=== PATIENT | male | born 1980 | race Caucasian/White ===

== ENCOUNTER 2016-05-27 20:12 | Emergency (ER) | payer BC ==
[2016-05-27 20:24] VITALS: BP 134/86; BMI 29.8
--- NOTE | 2016-05-27 20:26 | DR.PSYCH ---
HPI - Time Seen Time seen: 20:26 - PCP Primary Care Physician: nfd - Complaint Chief Complaint Doctors Comments: Patient states that he is non suicidal or homocidal. He has pain in back from herniated discs. He admits to taking nerves medication but does not know the name. He denies he intientionally tried to harm himself with scratches on left arm. Chief Complaint:: pt states" i'm just tired of everything I tired too choke myself to with a shirt. I just can't take it anymore I have so much pain in my back and neck I just can't and don't want too deal with anymore. I'd rather be " - Source History Provided: Patient - Mode of Arrival Mode of Arrival: EMS - Timing Onset of Chief Complaint: 05/27/16 PMH - PMH Past Medical History: Yes Past Medical History: Hypertension Past Surgical History: Yes Surgical History: Ortho Surgery Past Surgical History Comment: c-5 to c-7 fusion - Family History History of Family Medical Conditions: Yes Family Medical History: Diabetes Mellitus, [place], Hypertension - Social History Does patient currently use any type of tobacco product: Yes Have you used tobacco products in the last 12 months: Yes Does any household member use tobacco: No Alcohol Use: None Do you use any recreational Drugs:: No Lives With: Family Lives Where: Home - infectious screening In the last 2 months have you had wt loss of >10#?: NO Have you had fever, night sweats or hemotysis?: No Have you traveled outside the country in the last 6 months?: No Isolation: Standard ROS - Review of Systems Constitutional: No Symptoms Reported Eyes: No Symptoms Reported ENTM: No Symptoms Reported Respiratoy: No Symptoms Reported Cardiovascular: No Symptoms Reported Gastrointestinal/Abdominal: No Symptoms Reported Genitourinary: No Symptoms Reported Neurological: Emotional Problems Musculoskeletal: 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) Integumentary: No Symptoms Reported Hematologic/Lymphatic: No Symptoms Reported Endocrine: No Symptoms Reported Psychiatric: No Symptoms Reported All Other Systems: Reviewed and Negative PE - Vitals Vitals: Temperature 99.1 F Pulse Rate 135 Respiratory Rate 18 Blood Pressure [Right Arm] 143/81 Blood Pressure 134/86 O2 Sat by Pulse Oximetry 98 - General Limitations: No Limitations General Appearance: Alert, In No Apparent Distress - Head Head Exam: Normal Inspection, Atraumatic Head Exam Physical: Laceration - Eyes Eye exam: Normal Appearance Pupils: Regular, Round: Bilateral Sclera/Conjunctival: Normal Inspection: Bilateral - ENT ENT Exam: Normal Exam - Neck Neck Exam: Normal Inspection - Chest Chest Inspection: Normal Inspection - Respiratory Respiratory Exam: Normal Lung Sounds Bilat Respiratory Exam: Bilateral Clear to Auscultation - Cardiovascular Cardiovascular Exam: Regular Rate - Abdominal Exam Abdominal Exam: Normal Inspection Abdominal Tenderness: negative: RUQ, RLQ, LUQ, LLQ, Epigastrium, Suprapubic, Diffuse, Mild, Moderate, Severe, Other - Extremities Extremities Exam: Other (scratches left arm) - Back Back Exam: Normal Inspection - Neurologic Neurological Exam: Alert, Oriented X3, CN II-XII Intact Speech: Fluid Speech Cranial Nerve Exam: EOM Function (II, III, IV, ): Right Abnormal - Psychiatric Psychiatric Exam: Depressed, Flat Affect Expanded Psychiatric Exam: Poor Eye Contact - Skin Skin Exam: Warm, Dry, Other (scratches left arm) ROR - Labs Reviewed Result Diagrams: 05/27/16 20:25 05/27/16 20:25 Laboratory: WBC 10.1 X10^3/uL (3.6-10.0) H 05/27/16 20:25 RBC 5.40 X10^6/uL (4.7-6.0) 05/27/16 20:25 Hgb 16.4 g/dL (13.5-18.0) 05/27/16 20:25 Hct 47.5 % (42.0-54.0) 05/27/16 20:25 MCV 88.0 fL (80.0-100.0) 05/27/16 20:25 MCH 30.4 pg (27.0-34.0) 05/27/16 20:25 MCHC 34.5 g/dL (33.0-35.0) 05/27/16 20:25 RDW 14.2 % (11.6-16.5) 05/27/16 20:25 Plt Count 463 X10^3/uL (150.0-450.0) H 05/27/16 20:25 MPV 8.6 fL (7.4-11.0) 05/27/16 20:25 Neut % 67.5 % (42.0-75.0) 05/27/16 20:25 Lymph % 24.5 % (21.0-51.0) 05/27/16 20:25 [place] % 3.7 % (0.0-13.0) 05/27/16 20:25 Eos % 2.7 % (0.9-2.9) 05/27/16 20:25 Baso % 1.6 % (0.2-1.0) H 05/27/16 20:25 Neut # 6.8 x10^3/uL (2.2-4.8) H 05/27/16 20:25 Lymph # 2.5 X10^3/uL (1.3-2.9) 05/27/16 20:25 [place] # 0.4 x10^3/uL (0.3-0.8) 05/27/16 20:25 Eos # 0.3 x10^3/uL (0.0-0.2) H 05/27/16 20:25 Baso # 0.2 X10^3/uL (0.0-0.1) H 05/27/16 20:25 Absolute Nucleated RBC 0.1 /100WBC 05/27/16 20:25 - Discharge Plan Condition: Stable - Follow ups/Referrals Follow ups/Referrals: NFD,None [Primary Care Provider] - 3 days - Instructions
[2016-05-27 20:40] LABS: BASOPHILS # (AUTO) 0.2 X10^3/uL (0.0-0.1); BASOPHILS % (AUTO) 1.6 % (0.2-1.0); EOSINOPHILS # (AUTO) 0.3 x10^3/uL (0.0-0.2); EOSINOPHILS % (AUTO) 2.7 % (0.9-2.9); HEMATOCRIT 47.5 % (42.0-54.0); HEMOGLOBIN 16.4 g/dL (13.5-18.0); LYMPHOCYTES # (AUTO) 2.5 X10^3/uL (1.3-2.9); LYMPHOCYTES % (AUTO) 24.5 % (21.0-51.0); MEAN CORPUSCULAR HEMOGLOBIN 30.4 pg (27.0-34.0); MEAN CORPUSCULAR HGB CONC 34.5 g/dL (33.0-35.0); MEAN PLATELET VOLUME 8.6 fL (7.4-11.0); MONOCYTES # (AUTO) 0.4 x10^3/uL (0.3-0.8); MONOCYTES % (AUTO) 3.7 % (0.0-13.0); NEUTROPHILS # (AUTO) 6.8 x10^3/uL (2.2-4.8); NEUTROPHILS % (AUTO) 67.5 % (42.0-75.0); PLATELET COUNT 463 X10^3/uL (150.0-450.0); RED CELL DISTRIBUTION WIDTH 14.2 % (11.6-16.5); WHITE BLOOD COUNT 10.1 X10^3/uL (3.6-10.0)
[2016-05-27 20:54] LABS: SALICYLATE < 2.8 mg/dL (2.8-20)
[2016-05-27 20:55] LABS: ALANINE AMINOTRANSFERASE 42 Units/L (12-78); ALBUMIN 4.1 g/dL (3.4-5.0); ALKALINE PHOSPHATASE 91 Units/L (46-116); ASPARTATE AMINO TRANSFERASE 17 Units/L (15-37); BLOOD ALCOHOL < 3 mg/dL (0-19.9); BLOOD UREA NITROGEN 9 mg/dL (7-18); CALCIUM 8.6 mg/dL (8.5-10.1); CARBON DIOXIDE 22.8 mmol/L (21-32); CHLORIDE 105 mmol/L (98-107); COR NA(FOR HYPERGLY) 142 mmol/L (136-145); CREATININE 1.04 mg/dL (0.70-1.30); GLUCOSE 203 mg/dL (65-99); SODIUM 140 mmol/L (136-145); TOTAL PROTEIN 7.6 g/dL (6.4-8.2); eGFR BLACK RACES > 60 (>60); eGFR NON BLACK RACES > 60 (>60)
== END 2016-05-27 21:27 | disposition left against medical advice (07) ==
LOC: ER 20:12
DX: R45.851 Suicidal ideations (principal); M54.89 Other dorsalgia; M54.2 Cervicalgia; F43.8 Other reactions to severe stress
CPT/HCPCS: 36415; 80053; 80307; 80320; 85025; 99282; 99283; G6038; G6039; G6040

== ENCOUNTER → 2016-06-10 | Outpatient (CLI) | payer BC ==
[2016-05-27 20:24] VITALS: BP 134/86
--- NOTE | 2016-06-10 11:07 | MRI ---
HISTORY: Chronic low back pain, radiculopathy Study: MRI lumbar spine without contrast Comparison: January 07, 2016 Technique: Multiplanar multi-sequence MRI of the lumbar spine was obtained. Sagittal T1, sagittal T 2, and stir weighted images, axial T1, and axial T2 images were obtained. Findings: The lumbar spine demonstrates normal alignment with the expected signal characteristics of the bone marrow. The conus of the cord terminates normally. T12 -- L1: No evidence for compressive disc disease. The neural foramina are patent. The joints are normal. L1 -- L2: No evidence for compressive disc disease. The neural foramina are patent. The joints are n ormal. L2 -- L3: There is minimal disc bulging which causes mild thecal sac effacement . It contributes to mild lateral recess narrowing on the right. The left neural foramen is patent. The joints are normal . L3 -- L4: Broad-based disk bulging effaces the thecal sac and contributes along with mild facet arth ropathy to lateral recess and foraminal narrowing bilaterally. L4 -- L5: Mild broad-based disk bulging effaces the thecal sac and contributes along with pedicular shortening and facet arthropathy to lateral recess and foraminal narrowing bilaterally. L5 -- S1: There is a focal leftward disc protrusion which contributes to lateral recess and foramina l narrowing on the left. The right neural foramen is patent. The joints are normal. IMPRESSION: As above Reported By:
--- NOTE | 2016-06-10 11:10 | MRI ---
HISTORY: Chronic pain syndrome, neuritis, radiculitis Study: MRI thoracic spine without contrast Comparison: None Technique: Multiplanar multi-sequence MRI of the thoracic spine was obtained with standard [facility] protocol. Findings: The thoracic spine demonstrates normal alignment. No abnormal cord or marrow signal identified. The surrounding soft tissues are within normal limits. Vertebral body heights are preserved. The disc s paces are normal. There are partially visualized postsurgical changes in the lower cervical spine. IMPRESSION: 1. Normal MRI of the thoracic spine. Reported By:
--- NOTE | 2016-06-10 11:15 | MRI ---
Examination: MRI of the cervical spine Clinical History: Chronic pain syndrome, chronic cervical pain, neuritis or radiculitis. Technique: Multiple sequences were obtained in the sagittal and axial planes. Comparison: 01/07/2016. Findings: The cervical spine was imaged from the skull base to the level of T3. The visualized portion of the skull base is unremarkable. 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 Other etiologies cannot de finitely be excluded. The vertebral body alignment is within normal limits. There are stable postsurgical changes from a ventral fusion and decompressive laminectomies at the C 5-C7 levels, with ferromagnetic artifact from the metallic hardware making evaluation at these level s technically difficult. Signal changes are noted within the intervertebral disks at all levels in the cervical spine, consis tent with disk desiccation. No vertebral body signal abnormality is noted. No paraspinal abnormality is noted. C2-C3: Broad-based disc osteophytic complex formation is noted, mildly encroaching on the ventral as pect of the thecal sac and causing mild right-sided neural foraminal narrowing. No central canal gamal nosis is noted. Findings are not significantly changed when compared with the prior examination. C3-C4: Broad-based disc osteophytic complex formation is noted, encroaching on the ventral aspect of the thecal sac and causing mild bilateral neural foraminal narrowing, as well as mild central canal stenosis. Findings are not significantly changed when compared with the prior examination. C4-C5: Broad-based disc osteophytic complex formation is noted, encroaching on the ventral aspect of the thecal sac and causing mild left-sided neural foraminal narrowing, minor right-sided neural for aminal narrowing and mild central canal stenosis. Findings are not significantly changed when compar ed with the prior examination. C5-C6: Broad-based disc osteophytic complex formation is noted, encroaching on the ventral aspect of the thecal sac and causing mild bilateral neural foraminal narrowing. No central canal stenosis is noted. Findings are not significantly changed when compared with the prior examination. C6-C7: Broad-based disc osteophytic complex formation is noted, somewhat eccentric to the right, enc roaching on the ventral aspect of the thecal sac and causing mild to moderate right-sided neural for aminal narrowing and mild left-sided neural foraminal narrowing. No central canal stenosis is noted. Findings are not significantly changed when compared with the prior examination. C7-T1: Broad-based disc osteophytic complex formation is noted, mildly encroaching on the ventral as pect of the thecal sac and causing mild bilateral neural foraminal narrowing. No central canal steno sis is noted. Findings are not significantly changed compared with the prior examination. Impression: 1. There are stable postsurgical changes from a ventral fusion with decompressive laminectomies seen at the C5-C7 levels. 2. Multilevel disk degenerative changes resulting in neural foraminal narrowing and central canal st enosis, as described above. Findings are not significantly changed when compared with the prior exam ination. 3. 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 Other etiologies cannot definitely be excluded. Reported By:
== END ==
LOC: RAD 08:29
PROVIDERS: ATTEND Neurological Surgery
DX: M54.16 Radiculopathy, lumbar region (principal); G89.4 Chronic pain syndrome
CPT/HCPCS: 72141; 72146; 72148

== ENCOUNTER 2016-06-27 15:12 | Emergency (ER) | payer BC ==
[2016-06-27 15:25] VITALS: BMI 29.0
[2016-06-27 15:50] LABS: BASOPHILS # (AUTO) 0.1 X10^3/uL (0.0-0.1); BASOPHILS % (AUTO) 0.9 % (0.2-1.0); EOSINOPHILS # (AUTO) 0.2 x10^3/uL (0.0-0.2); EOSINOPHILS % (AUTO) 1.8 % (0.9-2.9); HEMATOCRIT 44.1 % (42.0-54.0); MEAN CORPUSCULAR HEMOGLOBIN 29.2 pg (27.0-34.0); MEAN CORPUSCULAR VOLUME 85.9 fL (80.0-100.0); MONOCYTES # (AUTO) 0.5 x10^3/uL (0.3-0.8); MONOCYTES % (AUTO) 5.3 % (0.0-13.0); NEUTROPHILS # (AUTO) 7.1 x10^3/uL (2.2-4.8); PLATELET COUNT 377 X10^3/uL (150.0-450.0); RED BLOOD COUNT 5.13 X10^6/uL (4.7-6.0); RED CELL DISTRIBUTION WIDTH 13.7 % (11.6-16.5); WHITE BLOOD COUNT 9.9 X10^3/uL (3.6-10.0)
[2016-06-27] MEDS ORDERED: ACTIDOSE WITH SORBITOL PO ONE (15:52)
[2016-06-27] MEDS ORDERED: ACTIDOSE WITH SORBITOL ONE (15:53)
[2016-06-27] MEDS ORDERED: NS 1000 ML 1,000 ML ONE (15:53)
[2016-06-27] MEDS ORDERED: NS 1000 ML 1,000 ML IV SCH (16:00)
[2016-06-27 16:03] LABS: ACETAMINOPHEN 9.7 ug/mL (10-30)
[2016-06-27 16:04] LABS: BLOOD UREA NITROGEN 10 mg/dL (7-18); CALCIUM 8.7 mg/dL (8.5-10.1); CARBON DIOXIDE 29.5 mmol/L (21-32); CHLORIDE 108 mmol/L (98-107); CREATININE 0.99 mg/dL (0.70-1.30); GLUCOSE 88 mg/dL (65-99); SODIUM 146 mmol/L (136-145); eGFR BLACK RACES > 60 (>60); eGFR NON BLACK RACES > 60 (>60)
[2016-06-27 16:08] LABS: ALANINE AMINOTRANSFERASE 41 Units/L (12-78); ALBUMIN 3.7 g/dL (3.4-5.0); ALKALINE PHOSPHATASE 97 Units/L (46-116); ASPARTATE AMINO TRANSFERASE 25 Units/L (15-37); CKMB % 1.1 % (<4); CREATINE KINASE 230 Units/L (39-308); CREATINE KINASE MB 2.6 ng/mL (0-4.0); TOTAL PROTEIN 7.1 g/dL (6.4-8.2)
[2016-06-27] MEDS ORDERED: ZOFRAN INJ 4 MG VIAL ONE (16:09)
[2016-06-27 16:10] LABS: SALICYLATE < 2.8 mg/dL (2.8-20)
[2016-06-27] MEDS ORDERED: ZOFRAN INJ 4 MG VIAL IVP ONE (16:12)
[2016-06-27 16:24] LABS: BLOOD ALCOHOL < 3.0 mg/dL (0-19.9)
[2016-06-27 16:28] LABS: TROPONIN I < 0.02 ng/mL (0-1.5)
[2016-06-27 16:35] LABS: BILIRUBIN,URINE NEGATIVE (NEGATIVE); BLOOD/HEMOGLOBIN,URINE NEGATIVE (NEGATIVE); GLUCOSE, URINE NEGATIVE (NEGATIVE); KETONES,URINE NEGATIVE (NEGATIVE); LEUKOCYTE ESTERASE ,URINE NEGATIVE (NEGATIVE); NITRITES,URINE NEGATIVE (NEGATIVE); PROTEIN,URINE NEGATIVE (NEGATIVE); UROBILINOGEN,URINE NORMAL (NORMAL)
[2016-06-27 16:58] LABS: APPEARANCE,URINE CLEAR (CLEAR); COLOR,URINE YELLOW (YELLOW)
[2016-06-27 17:05] LABS: RBC,URINE NONE SEEN /HPF (NEGATIVE); SQUAMOUS EPITHELIAL CELL,UR RARE /HPF (NEGATIVE)
[2016-06-27 17:06] LABS: AMORPHOUS SEDIMENT,UR TRACE /HPF (NEGATIVE); BACTERIA,URINE NEGATIVE /HPF (NEGATIVE)
[2016-06-27] MEDS ORDERED: TYLENOL 325 MG TAB PO ONE ×2 (20:26→20:27)
[2016-06-27] MEDS ORDERED: TORADOL 30 MG VIAL IVP ONE (23:53)
[2016-06-27] MEDS ORDERED: TORADOL 30 MG VIAL ONE (23:58)
--- NOTE | 2016-06-28 01:56 | DR.GENAD ---
HPI - PCP Primary Care Physician: LORENA - Complaint/Symptoms Chief Complaint Doctors Comments: History as stated that patient attempted suicide by taking xanax tablets several pills. He presented to the ED s/p EMS communication, Poison control called indicated a period of observation (three hours) s/p activated charcoal.Patients UDS was posiitive for benzodiazepines. Chief Complaint:: PT C/O TAKING 7-8 XANAX. ASKED PT IF HE WAS TRYING TO KILL HIMSELF HE STATES YES. PT STATES THIS IS NOT THE FIRST TIME HE HAS ATTEMPTED. - Source History Provided: Patient - Mode of Arrival Mode of Arrival: EMS - Timing Onset of Chief Complaint: 06/27/16 PMH - PMH Past Medical History: Yes Past Medical History: Depression, Hypertension, [place] Past Surgical History: Yes Surgical History: Ortho Surgery - Family History History of Family Medical Conditions: Yes Family Medical History: Diabetes Mellitus, [place], Hypertension - Social History Does patient currently use any type of tobacco product: Yes Have you used tobacco products in the last 12 months: Yes Type of Tobacco Use: None Does any household member use tobacco: No Alcohol Use: None Do you use any recreational Drugs:: No Lives With: Family Lives Where: Home - infectious screening In the last 2 months have you had wt loss of >10#?: NO Have you had fever, night sweats or hemotysis?: No Have you traveled outside the country in the last 6 months?: No Isolation: Standard ROS - Review of Systems Eyes: No Symptoms Reported ENTM: No Symptoms Reported Respiratoy: No Symptoms Reported Cardiovascular: No Symptoms Reported Gastrointestinal/Abdominal: No Symptoms Reported Genitourinary: No Symptoms Reported Neurological: No Symptoms Reported Musculoskeletal: No Symptoms Reported Integumentary: No Symptoms Reported Hematologic/Lymphatic: No Symptoms Reported Endocrine: No Symptoms Reported Psychiatric: No Symptoms Reported, Suicidal PE - Vital Signs Vitals: Temperature 98.4 F Pulse Rate [Left Brachial] 72 Pulse Rate 75 Respiratory Rate 18 Blood Pressure [Right Arm] 139/77 Blood Pressure 138/77 O2 Sat by Pulse Oximetry 100 - General Limitations: No Limitations General Appearance: Alert, Obtunded - Head Head Exam: Normal Inspection, Atraumatic - Eyes Eye exam: Normal Appearance, PERRL, EOMI - ENT ENT Exam: Normal Exam External Ear Exam: Normal External Inspection TM/Canal Exam: Bilateral Normal Nose Exam: Normal Nose Exam Mouth Exam: Normal Inspection Throat Exam: Normal Inspection - Neck Neck Exam: Normal Inspection - Chest Chest Inspection: Normal Inspection - Respiratory Respiratory Exam: Normal Lung Sounds Bilat Respiratory Exam: Bilateral Clear to Auscultation - Cardiovascular Cardiovascular Exam: Regular Rate, Normal Rhythm - Abdominal Exam Abdominal Exam: Normal Inspection Abdominal Tenderness: negative: RUQ, RLQ, LUQ, LLQ, Epigastrium, Suprapubic, Diffuse, Mild, Moderate, Severe, Other - Extremities Extremities Exam: Normal Inspection - Back Back Exam: Normal Inspection, Full ROM - Neurologic Neurological Exam: Alert, Oriented X3, CN II-XII Intact - Psychiatric Psychiatric Exam: Depressed - Skin Skin Exam: Warm, Dry, Intact Course - Treatment Treatment: Patient accepte by [facility] for evaluation and treatment ROR - Labs Reviewed Laboratory Results Reviewed?: Yes (pot low) Result Diagrams: 06/27/16 15:40 06/27/16 15:40 Laboratory: WBC 9.9 X10^3/uL (3.6-10.0) 06/27/16 15:40 RBC 5.13 X10^6/uL (4.7-6.0) 06/27/16 15:40 Hgb 15.0 g/dL (13.5-18.0) 06/27/16 15:40 Hct 44.1 % (42.0-54.0) 06/27/16 15:40 MCV 85.9 fL (80.0-100.0) 06/27/16 15:40 MCH 29.2 pg (27.0-34.0) 06/27/16 15:40 MCHC 34.0 g/dL (33.0-35.0) 06/27/16 15:40 RDW 13.7 % (11.6-16.5) 06/27/16 15:40 Plt Count 377 X10^3/uL (150.0-450.0) 06/27/16 15:40 MPV 8.0 fL (7.4-11.0) 06/27/16 15:40 Neut % 72.0 % (42.0-75.0) 06/27/16 15:40 Lymph % 20.0 % (21.0-51.0) L 06/27/16 15:40 [place] % 5.3 % (0.0-13.0) 06/27/16 15:40 Eos % 1.8 % (0.9-2.9) 06/27/16 15:40 Baso % 0.9 % (0.2-1.0) 06/27/16 15:40 Neut # 7.1 x10^3/uL (2.2-4.8) H 06/27/16 15:40 Lymph # 2.0 X10^3/uL (1.3-2.9) 06/27/16 15:40 [place] # 0.5 x10^3/uL (0.3-0.8) 06/27/16 15:40 Eos # 0.2 x10^3/uL (0.0-0.2) 06/27/16 15:40 Baso # 0.1 X10^3/uL (0.0-0.1) 06/27/16 15:40 Absolute Nucleated RBC 0.1 /100WBC 06/27/16 15:40 Sodium 146 mmol/L (136-145) H 06/27/16 15:40 Corrected Sodium TNP 06/27/16 15:40 Potassium 3.3 mmol/L (3.5-5.1) L 06/27/16 15:40 Chloride 108 mmol/L (98-107) H 06/27/16 15:40 Carbon Dioxide 29.5 mmol/L (21-32) 06/27/16 15:40 BUN 10 mg/dL (7-18) 06/27/16 15:40 Creatinine 0.99 mg/dL (0.70-1.30) 06/27/16 15:40 Est GFR (MDRD) Af Amer > 60 (>60) 06/27/16 15:40 Est GFR (MDRD) Non-Af > 60 (>60) 06/27/16 15:40 Glucose 88 mg/dL (65-99) 06/27/16 15:40 Calcium 8.7 mg/dL (8.5-10.1) 06/27/16 15:40 Corrected Calcium TNP 06/27/16 15:40 Total Bilirubin 0.60 mg/dL (0.2-1.0) 06/27/16 15:40 AST 25 Units/L (15-37) 06/27/16 15:40 ALT 41 Units/L (12-78) 06/27/16 15:40 Alkaline Phosphatase 97 Units/L (46-116) 06/27/16 15:40 Creatine Kinase 230 Units/L (39-308) 06/27/16 15:40 CK-MB (CK-2) 2.6 ng/mL (0-4.0) 06/27/16 15:40 CK/CKMB % Calc 1.1 % (<4) 06/27/16 15:40 Troponin I < 0.02 ng/mL (0-1.5) 06/27/16 15:40 Total Protein 7.1 g/dL (6.4-8.2) 06/27/16 15:40 Albumin 3.7 g/dL (3.4-5.0) 06/27/16 15:40 Globulin 3.4 g/dL (2.5-4.5) 06/27/16 15:40 Albumin/Globulin Ratio 1.1 Ratio (1.1-2.1) 06/27/16 15:40 Specimen Type Clean catch urine 06/27/16 16:18 Urine Color Yellow (YELLOW) 06/27/16 16:18 Urine Appearance Clear (CLEAR) 06/27/16 16:18 Urine pH 6.0 (5.0 - 8.0) 06/27/16 16:18 Ur Specific [place] 1.005 (1.000-1.030) 06/27/16 16:18 Urine Protein Negative (NEGATIVE) 06/27/16 16:18 Urine Glucose (UA) Negative (NEGATIVE) 06/27/16 16:18 Urine Ketones Negative (NEGATIVE) 06/27/16 16:18 Urine Occult Blood Negative (NEGATIVE) 06/27/16 16:18 Urine Nitrite Negative (NEGATIVE) 06/27/16 16:18 Urine Bilirubin Negative (NEGATIVE) 06/27/16 16:18 Urine Urobilinogen Normal (NORMAL) 06/27/16 16:18 Ur Leukocyte Esterase Negative (NEGATIVE) 06/27/16 16:18 Urine RBC None seen /HPF (NEGATIVE) 06/27/16 16:18 Urine WBC None seen /HPF (NEGATIVE) 06/27/16 16:18 Ur Squamous Epith Cells Rare /HPF (NEGATIVE) 06/27/16 16:18 Amorphous Sediment Trace /HPF (NEGATIVE) 06/27/16 16:18 Urine Bacteria Negative /HPF (NEGATIVE) 06/27/16 16:18 Ur Culture Indicated? No/not indicated 06/27/16 16:18 Salicylates < 2.8 mg/dL (2.8-20) L 06/27/16 15:40 Urine Opiates Screen Negative (NEG=<300) 06/27/16 16:18 Urine Methadone Screen Negative (NEG=<300) 06/27/16 16:18 Acetaminophen 9.7 ug/mL (10-30) L 06/27/16 15:40 Ur Barbiturates Screen Negative (NEG=<200) 06/27/16 16:18 Ur Phencyclidine Scrn Negative (NEG=<25) 06/27/16 16:18 Ur Amphetamines Screen Negative (NEG=<1000) 06/27/16 16:18 U Benzodiazepines Scrn Positive (NEG=<200) 06/27/16 16:18 Urine Cocaine Screen Negative (NEG=<300) 06/27/16 16:18 U Marijuana (THC) Screen Negative (NEG=<50) 06/27/16 16:18 Ethyl Alcohol mg/dL < 3.0 mg/dL (0-19.9) 06/27/16 15:40 - EKG Rate: 77 - Diagnosis Discharge Problem: Suicidal intent - Discharge Plan Condition: Stable - Follow ups/Referrals Follow ups/Referrals: Jose Rafael Robledo [Primary Care Provider] - 3 days - Instructions
[2016-06-28] MEDS ORDERED: K-DUR TAB 20 MEQ PO ONE ×2 (02:01)
[2016-06-28] MEDS ORDERED: [UNRECOGNIZED DRUG - OTHER] ONE (02:23)
[2016-06-28] MEDS ORDERED: [UNRECOGNIZED DRUG - OTHER] AFFEYE ONE (02:26)
[2016-06-28 04:13] VITALS: BP 128/72
== END 2016-06-28 04:12 | disposition home or self-care (01) ==
LOC: ER 15:14
DX: R45.851 Suicidal ideations (principal)
CPT/HCPCS: 36415; 80053; 80307; 80320; 81001; 82550; 82553; 84484; 85025; 93005; 96365; 96367; 96374; 96375; 99285; G0434; G6038; G6039; G6040; J1885; J2405

== ENCOUNTER → 2016-08-12 | Outpatient (CLI) | payer BC ==
--- NOTE | 2016-08-12 15:49 | RAD ---
HISTORY: Right hand pain. Injury. Patient hit hand on wall. Study: Right hand three views Comparison: July 09, 2015. Findings: There is a chronic healed fracture deformity involving the right 5th metacarpal. No acute cortical d isruption or dislocation is identified. The soft tissues are unremarkable. The carpal bones appear aligned without evidence for fracture. IMPRESSION: 1. No evidence of acute osseous injury to the right hand. 2. Chronic healed fracture deformity involving the right 5th metacarpal. Reported By:
== END | disposition home or self-care (01) ==
LOC: RAD 14:53
PROVIDERS: ATTEND Specialist
DX: M79.641 Pain in right hand (principal); Z87.81 Personal history of (healed) traumatic fracture
CPT/HCPCS: 73130

== ENCOUNTER 2017-03-31 15:18 | Emergency (ER) | payer SELFPAY ==
[2017-03-31 15:33] VITALS: BMI 32.3
--- NOTE | 2017-03-31 17:33 | DR.MBACK ---
HPI - Time Seen Time seen: 17:30 - PCP Primary Care Physician: IBBI COX - Complaint Chief Complaint:: FELL STRAIGHT BACK AND LANDED ON WOOD FLOOR AT HOUSE. LOWER BACK IS RED AND SWOLLEN. PT HOLDING TO RIGHT LOWER BACK - Source History Provided: Patient - Mode of Arrival Mode of Arrival: Ambulatory - Timing Onset of Chief Complaint: 03/31/17 - Location Back Pain Location: Lower, Lumbar - Associated Signs and Symptoms Numbness: Right, Foot PMH - PMH Past Medical History: Yes Past Medical History: Depression, Hypertension, Hypothyroidism, [place] Past Surgical History: Yes Surgical History: Ortho Surgery - Family History History of Family Medical Conditions: Yes Family Medical History: Diabetes Mellitus, [place], Hypertension - Social History Type of Tobacco Use: Smokeless Alcohol Use: Rarely Do you use any recreational Drugs:: Yes (THC) Lives With: Family Lives Where: Home - infectious screening In the last 2 months have you had wt loss of >10#?: NO Have you had fever, night sweats or hemotysis?: No Have you traveled outside the country in the last 6 months?: No Isolation: Standard ROS - Review of Systems Constitutional: No Symptoms Reported Eyes: No Symptoms Reported ENTM: No Symptoms Reported Respiratoy: No Symptoms Reported Cardiovascular: No Symptoms Reported Gastrointestinal/Abdominal: No Symptoms Reported Genitourinary: No Symptoms Reported Neurological: No Symptoms Reported Musculoskeletal: Back Pain Integumentary: Change in Color (lower back) Hematologic/Lymphatic: No Symptoms Reported Endocrine: No Symptoms Reported Psychiatric: No Symptoms Reported All Other Systems: Reviewed and Negative PE - Vital Signs Vitals: Temperature 98.6 F Pulse Rate 84 Respiratory Rate 14 Blood Pressure [Right Arm] 128/72 Blood Pressure 120/64 O2 Sat by Pulse Oximetry 98 - General General Appearance: Alert, In Distress - Head Head Exam: Normal Inspection, Atraumatic - Eyes Eye exam: Normal Appearance, PERRL, EOMI - ENT ENT Exam: Normal Exam - Chest Chest Inspection: Normal Inspection, Symmetric Chest Wall Rise - Respiratory Respiratory Exam: Normal Lung Sounds Bilat Respiratory Exam: Bilateral Clear to Auscultation - Cardiovascular Cardiovascular Exam: Regular Rate, Normal Rhythm - Abdominal Exam Abdominal Exam: Normal Inspection, Normal Bowel Sounds Abdominal Tenderness: negative: RUQ, RLQ, LUQ, LLQ, Epigastrium, Suprapubic, Diffuse, Mild, Moderate, Severe, Other - Rectal Rectal Exam: Deferred - Genitourinary Exam: Male: Deferred Scrotal Exam: Normal: Bilateral - Extremities Extremities Exam: Normal Inspection, Full ROM - Back Back Exam: Tenderness, Paraspinal Tenderness, Rashes (low lumbar pinkish discoloration) - Neurological Neurological Exam: Alert, Oriented X3, CN II-XII Intact - Psychiatric Psychiatric Exam: Normal Affect - Skin Skin Exam: Warm, Dry, Intact ROR - XRAY XRAY Interpreted by: Radiologist (Lumbar: Anatomic alignment without acute fracture or listhesis. The vertebral body heights and disc spaces are maintained. Multilevel mild facet arthrosis and small anterior disc osteophyte complexes. Broad based disc bulges at L3 through S1 causing mild to moderate neural foraminal narrowing and spinal canal stenosis to 9mm appears unchanged given technique. The visualized soft tissues are unremarkable. Impression: No acute osseous abnormality) - Diagnosis Discharge Problem: Back contusion Qualifiers: Encounter type: subsequent encounter Laterality: unspecified laterality Qualified Code(s): S20.229D - Contusion of unspecified back wall of thorax, subsequent encounter - Discharge Plan Condition: Stable - Follow ups/Referrals Follow ups/Referrals: SHASTA COX [Primary Care Provider] - 3 days - Instructions
[2017-03-31] MEDS ORDERED: DILAUDID INJ IM ONE (17:41)
[2017-03-31] MEDS ORDERED: DILAUDID INJ ONE (17:43)
--- NOTE | 2017-03-31 19:07 | CT ---
HISTORY: Back pain status post fall. Study: CT lumbar spine without contrast Comparison: CT lumbar spine dated November 10, 2015 and MRI lumbar spine dated June 10, 2016. Technique: Multiple axial images of the lumbar spine were obtained from the thoracolumbar junction t o the sacrum without the administration of IV contrast. Sagittal and coronal reformats were performe d and reviewed. Dose reduction techniques including Automated Exposure Control (AEC) and adjustment of mA and kV were utilized. Findings: Anatomic alignment without acute fracture or listhesis. The vertebral body heights and disc spaces ar e maintained. Multilevel mild facet arthrosis and small anterior disc osteophyte complexes. Broad-bas ed disc bulges at L3 through S1 causing [id number] neural foraminal narrowing and spinal canal stenosis to 9 mm appears unchanged given technique. The visualized soft tissues are unremarkable. IMPRESSION: No acute osseous abnormality. Reported By:
[2017-03-31] MEDS ORDERED: TORADOL TAB PO PRN (19:26)
[2017-03-31 19:37] VITALS: BP 130/72
== END 2017-03-31 19:30 | disposition home or self-care (01) | DRG 605 ==
LOC: ER 15:35
DX: S20.229A Contusion of unspecified back wall of thorax, initial encounter (principal); W19.XXXA Unspecified fall, initial encounter; Y93.89 Activity, other specified; Y92.099 Unspecified place in other non-institutional residence as the place of occurrence of the external cause
CPT/HCPCS: 72131; 96372; 99282; J1170

== ENCOUNTER 2017-07-16 13:13 | Emergency (ER) | payer SELFPAY ==
[2017-07-16 13:18] VITALS: BP 131/79; BMI 31.4
--- NOTE | 2017-07-16 14:02 | DR.MBACK ---
HPI - Time Seen Time seen: 13:53 - PCP Primary Care Physician: patito khan - Complaint Chief Complaint Doctors Comments: Hx. as noted in nurses notes. He also gave a hx. of chronic intermittent LBP with some bulging discs but no previous surgical interventions. He has also chronic neck pain with surgical decomprssion x 2. He has not been on opiods or such meds form months. Chief Complaint:: patient c/o lower back pain after picking up son yesterday stating he felt something pop. Patient states it is difficult to stand, walk, or even sit. Self Treatment fo Chief Complaint: Motrin - Reviewed Nurses Notes Review: Yes - Source History Provided: Patient - Mode of Arrival Mode of Arrival: Ambulatory - Timing Onset of Chief Complaint: 07/15/17 PMH - PMH Past Medical History: Yes Past Medical History: Depression, Hypertension, Hypothyroidism, [place] Past Medical History Comment: chronic low back and neck pain Past Surgical History: Yes Surgical History: Ortho Surgery Past Surgical History Comment: neck surgery x2,. bulging disk - Family History History of Family Medical Conditions: Yes Family Medical History: Diabetes Mellitus, [place], Hypertension - Social History Does patient currently use any type of tobacco product: No Have you used tobacco products in the last 12 months: No Type of Tobacco Use: None Does any household member use tobacco: No Do you use any recreational Drugs:: Yes (THC) Lives With: Family Lives Where: Home - infectious screening In the last 2 months have you had wt loss of >10#?: NO Have you had fever, night sweats or hemotysis?: No Have you traveled outside the country in the last 6 months?: No Isolation: Standard ROS - Review of Systems Constitutional: No Symptoms Reported Eyes: No Symptoms Reported ENTM: No Symptoms Reported Respiratoy: No Symptoms Reported Cardiovascular: No Symptoms Reported Gastrointestinal/Abdominal: No Symptoms Reported Genitourinary: No Symptoms Reported Neurological: No Symptoms Reported Musculoskeletal: Back Pain Integumentary: No Symptoms Reported Hematologic/Lymphatic: No Symptoms Reported Endocrine: No Symptoms Reported Psychiatric: No Symptoms Reported All Other Systems: Reviewed and Negative PE - Vital Signs Vitals: Temperature 98.6 F Pulse Rate 83 Respiratory Rate 18 Blood Pressure [Right Arm] 130/72 Blood Pressure 131/79 O2 Sat by Pulse Oximetry 97 - General Limitations: No Limitations General Appearance: Alert, In No Apparent Distress - Head Head Exam: Normal Inspection - Eyes Eye exam: Normal Appearance, PERRL, EOMI - ENT ENT Exam: Normal Exam - Chest Chest Inspection: Normal Inspection - Respiratory Respiratory Exam: Normal Lung Sounds Bilat - Cardiovascular Cardiovascular Exam: Regular Rate, Normal Rhythm, +S1, +S2 - Abdominal Exam Abdominal Exam: Normal Inspection, Normal Bowel Sounds, Soft - Rectal Rectal Exam: Deferred - Genitourinary Exam: Male: Deferred - Extremities Extremities Exam: Normal Inspection, Full ROM - Back Back Exam: Normal Inspection, Tenderness (lumbar), Muscle Spasm (bilateral, lower paravertebral muscles ) - Neurological Neurological Exam: Alert, Oriented X3, CN II-XII Intact - Psychiatric Psychiatric Exam: Normal Affect, Normal Mood - Skin Skin Exam: Warm, Dry, Intact, Normal Color ROR - XRAY XRAY Interpreted by: Radiologist (L/S spine: mild degree of DDD in lumbar spine. mild loss of anterior vertebral body height at L1. if indicated, consider MRI.) - Diagnosis Discharge Problem: Acute exacerbation of chronic low back pain - Discharge Plan Disposition: 01 HOME, SELF-CARE Condition: Stable - Follow ups/Referrals Follow ups/Referrals: PATITO KHAN [Primary Care Provider] - 3 days - Instructions Instructions: Chronic Pain, Adult
[2017-07-16] MEDS ORDERED: NORCO 7.5/325 MG TAB PO ONE (14:06)
[2017-07-16] MEDS ORDERED: FLEXERIL TAB 10 MG PO ONE (14:06)
[2017-07-16] MEDS ORDERED: FLEXERIL TAB 10 MG ONE (14:13)
[2017-07-16] MEDS ORDERED: NORCO 7.5/325 MG TAB ONE (14:13)
--- NOTE | 2017-07-16 14:50 | RAD ---
Exam: Lumbar spine AP and lateral views History: 36-year-old male with lower back pain. Comparison: MRI of the lumbar spine from 06/10/2016 Findings: Lumbar vertebral bodies are normally aligned. There is mild narrowing at the L1-2, L2-3, L3 -4, and L5-S1 disc spaces. Small anterior osteophytes are seen at these levels as well. Mild loss of anterior vertebral body height is noted at the L1 level. This has progressed slightly since the previ ous CT from 03/31/2017. Vertebral body heights at the other lumbar levels are maintained. Impression: 1. Mild degree of multilevel degenerative disc disease is again seen throughout the lumbar spine. 2. Mild loss of anterior vertebral body height at the L1 level which has progressed slightly since th e previous CT from 03/31/2017. It is possible this may represent a subacute bony injury. If patient h as symptoms referable to this location, consider further evaluation with MRI of the lumbar spine to d etermine whether patient may be candidate for percutaneous vertebral body augmentation. Reported By:
== END 2017-07-16 15:29 | disposition home or self-care (01) ==
LOC: ER 13:24
DX: M54.5 Low back pain (principal); M51.36 Other intervertebral disc degeneration, lumbar region; R29.890 Loss of height
CPT/HCPCS: 72100; 99282

== ENCOUNTER 2017-07-20 13:28 | Emergency (ER) | payer SELFPAY ==
[2017-07-20 13:33] VITALS: BP 124/72; BMI 31.4
--- NOTE | 2017-07-20 14:23 | DR.EXTPAIN ---
HPI - Time seen Time seen: 14:26 - PCP Primary Care Physician: jimmy khan - Complaint/Symptoms Chief Complaint:: pt stated he was standing up and fell and landed on his back causing pain to his lower back and his rt leg if numb - Source History Provided: Patient - Mode of arrival Mode of Arrival: Ambulatory - Timing Onset of Chief Complaint: 07/19/17 PMH - PMH Past Medical History: Yes Past Medical History: Depression, Hypertension, Hypothyroidism, [place] Past Surgical History: Yes Surgical History: Ortho Surgery - Family History History of Family Medical Conditions: Yes Family Medical History: Diabetes Mellitus, [place], Hypertension - Social History Does patient currently use any type of tobacco product: No Have you used tobacco products in the last 12 months: No Type of Tobacco Use: None Does any household member use tobacco: No Alcohol Use: None Do you use any recreational Drugs:: Yes (THC) Lives With: Family Lives Where: Home - infectious screening In the last 2 months have you had wt loss of >10#?: NO Have you had fever, night sweats or hemotysis?: No Have you traveled outside the country in the last 6 months?: No Isolation: Standard PE - Vital Signs Vitals: Temperature 98.6 F Pulse Rate 73 Respiratory Rate 16 Blood Pressure [Right Arm] 130/72 Blood Pressure 124/72 O2 Sat by Pulse Oximetry 100 - Diagnosis Discharge Problem: LWBS - Discharge Plan Disposition: LWBS After Triage Condition: Stable - Follow ups/Referrals Follow ups/Referrals: SHASTA KHAN [Primary Care Provider] - 3 days - Instructions
== END 2017-07-20 14:10 | disposition left against medical advice (07) ==
LOC: ER 13:40
DX: M54.5 Low back pain (principal)
CPT/HCPCS: 99281

== ENCOUNTER 2025-01-18 10:13 | Observation (INO) ==
[2025-01-18 10:35] VITALS: BMI 29.5
[2025-01-18 10:36] LABS: MEAN PLATELET VOLUME 8.5 fL (7.4-11.0); RED CELL DISTRIBUTION WIDTH 13.6 % (11.6-16.5)
[2025-01-18] MEDS: ASPIRIN PO ONE (10:44)
[2025-01-18 10:45] LABS: INR 0.99 (0.8-1.3)
[2025-01-18] MEDS: ZOFRAN INJ 4 MG VIAL IVP ONE (10:46)
--- NOTE | 2025-01-18 10:49 | RAD ---
EXAM: CHEST, PA/LAT ADULT HISTORY: CP, SOB; COMPARISON: No relevant prior studies were available for comparison at the time of interpretation. TECHNIQUE: CHEST, PA/LAT ADULT FINDINGS: Chest: Lines and tubes: Cardiac leads overlie the chest. Mediastinum: Cardiac and mediastinal shadow is within normal limits for size and contour. Pulmonary vessels: No pulmonary vascular congestion. Lung ahuja: No suspicious airspace opacity. Pleura: No effusion. No pneumothorax. Bones and soft tissues: No acute osseous or soft tissue abnormality. IMPRESSION: 1. No acute cardiopulmonary abnormality THIS IS AN ELECTRONICALLY VERIFIED FINAL REPORT 01/18/2025 10:45 AM - Electronically signed by Joseph Meier MD
[2025-01-18] MEDS: NITROSTAT SL ONE (10:53)
--- NOTE | 2025-01-18 11:08 | EKG ---
Test Reason : chest pain Blood Pressure : */* mmHG Vent. Rate : 72 BPM Atrial Rate : 72 BPM P-R Int : 196 ms QRS Dur : 96 ms QT Int : 374 ms P-R-T Axes : 49 -32 52 degrees QTc Int : 409 ms Normal sinus rhythm Left axis deviation Possible Anterior infarct (cited on or before 28-SEP-2024) Abnormal ECG When compared with ECG of 28-SEP-2024 08:26, No significant change was found Confirmed by Ubaldo Blair MD ([id number]) on 01/19/2025 5:53:22 AM Referred By: Confirmed By: Ubaldo Blair MD
[2025-01-18 11:15] LABS: COR NA(FOR HYPERGLY) 145 mmol/L (136-145); CREATININE 1.00 mg/dL (0.70-1.30); eGFR NON BLACK RACES > 60 (>60)
[2025-01-18] MEDS: MORPHINE SULFATE INJ 2 MG INJ IVP ONE ×2 (11:30→13:30)
[2025-01-18 12:03] LABS: APPEARANCE,URINE CLEAR (CLEAR); BLOOD/HEMOGLOBIN,URINE NEGATIVE (NEGATIVE); LEUKOCYTE ESTERASE ,URINE NEGATIVE (NEGATIVE); NITRITES,URINE NEGATIVE (NEGATIVE)
[2025-01-18] MEDS: NITRO-BID OINT 2% UD (E.R. USE ONLY) TD ONE (12:21)
--- NOTE | 2025-01-18 12:42 | CT ---
EXAM: ABDOMEN/PELVIS W/O CON HISTORY: ABD PAIN; COMPARISON: None. TECHNIQUE: Multiple axial images of the abdomen and pelvis were obtained from the lung bases to the pubic symphysis without the administration of IV contrast. Dose reduction techniques including Automated Exposure Control (AEC) and adjustment of mA and kV were utilized. FINDINGS: The posterior lung bases are clear. There are no pleural fluid collections. The heart size is normal. The gallbladder is surgically absent. The noncontrast attenuation of the liver parenchyma remains homogeneous. No acute abnormalities of the pancreas or adrenal glands. Craniocaudal length of the spleen is 14.2 cm. AP diameter of 12.2 cm. Findings compatible with mild splenomegaly. Splenic attenuation remains homogeneous No radiopaque calculi of the right or left kidney. No evidence of hydronephrosis. Bilateral ureters are decompressed to the level of the urinary bladder. There are multiple pelvic and retroperitoneal phleboliths. Normal caliber aorta and IVC. Small fat containing left periumbilical hernia measuring 2.4 cm without complication. No pathologically distended, aggressively thickened or acutely inflamed bowel segments, within limitations of a noncontrast assessment. Moderate stool burden of the colon. A few scattered colonic diverticula are observed. A normal appendix is confirmed. There is no mesenteric root edema or free fluid. The prostate gland is average size. The bladder is normal in morphology. No pelvic lymphadenopathy is identified. Postsurgical changes of PLIF at the L4-L5 level with no acute hardware complications. Spinal stimulator device is in place within the left flank. No aggressive bony lesions or acute osseous abnormalities are identified. IMPRESSION: No radiopaque genitourinary calculi or evidence of obstruction associated with the right or left kidney. No localizing source of acute inflammation within the abdomen or pelvis, within limitations of a noncontrast assessment Nonobstructive bowel gas pattern with moderate stool burden of the colon Small fat containing left periumbilical hernia without complication See above for details of additional postsurgical and notable chronic findings. THIS IS AN ELECTRONICALLY VERIFIED FINAL REPORT 01/18/2025 12:39 PM - Electronically signed by Gabriele Harp MD
--- NOTE | 2025-01-18 14:38 | DR.CP ---
HPI Time Seen Time Seen by Provider: 01/18/25 11:45 PCP Primary Care Physician: Ester Velasquez Complaint Chief Complaint Doctor Comments: Patient with 2 hours of chest pain. He does have a history of coronary disease with previous ME, hypertension, hyperlipidemia and diabetes type 2 on insulin. Patient points to lower sternum and upper epigastric region to show of the penis. Patient states he was recently diagnosed with stomach ulcers and has had diagnosis of pancreatic issues in the past. Chief Complaint:: Pt states approx 2 hours ago he started having left sided chest pain that radiates across left breast and down left arm. He states he feels SOB d/t "it hurts to take a deep breath"; states he has vomited x3 this morning and c/o ongoing nausea. Pt didn't take any AM meds this morning. 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 Self Treatment fo Chief Complaint: none Source History Provided: Patient Mode of Arrival Mode of Arrival: Ambulatory Timing Onset of Chief Complaint: 01/18/25 Location Chest Pain Radiation Location: Left Arm Associated Signs and Symptoms Associated Signs and Symptoms: Shortness of Breath and Nausea/Vomiting PMH PMH Past Medical History: Yes Past Medical History: Coronary Artery Disease, Diabetes, Dyslipidemia, Hypertension and [place] Past Surgical History: Yes Surgical History: Cholecystectomy, Ortho Surgery and Other Family History History of Family Medical Conditions: Yes Family Medical History: Diabetes Mellitus, Cancer, [place], Coronary Artery Disease, Heart Failure, Sudden Cardiac and Hypertension Social History Does patient currently use any type of tobacco product: Yes Have you used tobacco products in the last 12 months: Yes Type of Tobacco Use: Smokeless Alcohol Use: None Do you use any recreational Drugs:: No Lives With: Spouse and Family Lives Where: Home Infectious screening In the last 2 months have you had wt loss of >10#?: NO Have you had fever, night sweats or hemotysis?: No Have you traveled outside the country in the last 6 months?: No Isolation: Standard ROS Review of Systems Constitutional: No Symptoms Reported Eyes: No Symptoms Reported ENTM: No Symptoms Reported Respiratoy: No Symptoms Reported Cardiovascular: See HPI and Chest Pain; negative Edema, Palpitations or Syncope Gastrointestinal/Abdominal: No Symptoms Reported Genitourinary: No Symptoms Reported Neurological: No Symptoms Reported Musculoskeletal: No Symptoms Reported Integumentary: No Symptoms Reported Hematologic/Lymphatic: No Symptoms Reported Endocrine: No Symptoms Reported Psychiatric: No Symptoms Reported All Other Systems: Reviewed and Negative PE Vitals Vitals: Vital Signs Temperature 98.1 F Pulse Rate 68 Pulse Rate 71 Pulse Rate 66 Pulse Rate 68 Pulse Rate 65 Pulse Rate 71 Pulse Rate 79 Pulse Rate 78 Pulse Rate 87 Pulse Rate 81 Pulse Rate 80 Pulse Rate 86 Pulse Rate 93 Respiratory Rate 22 Respiratory Rate 27 Respiratory Rate 18 Respiratory Rate 11 Respiratory Rate 13 Respiratory Rate 20 Respiratory Rate 19 Respiratory Rate 20 Respiratory Rate 15 Respiratory Rate 15 Respiratory Rate 20 Respiratory Rate 20 Respiratory Rate 10 Respiratory Rate 17 Respiratory Rate 19 Respiratory Rate 16 Blood Pressure 119/89 Blood Pressure 126/81 Blood Pressure 136/79 Blood Pressure 124/70 Blood Pressure 139/83 Blood Pressure 178/79 Blood Pressure 132/84 O2 Sat by Pulse Oximetry 96 O2 Sat by Pulse Oximetry 95 O2 Sat by Pulse Oximetry 96 O2 Sat by Pulse Oximetry 97 O2 Sat by Pulse Oximetry 97 O2 Sat by Pulse Oximetry 96 O2 Sat by Pulse Oximetry 96 O2 Sat by Pulse Oximetry 94 O2 Sat by Pulse Oximetry 96 O2 Sat by Pulse Oximetry 99 O2 Sat by Pulse Oximetry 99 O2 Sat by Pulse Oximetry 98 General Limitations: No Limitations General Appearance: Alert and In No Apparent Distress Head Head Exam: Normal Inspection Eyes Eye exam: Normal Appearance Chest Chest Inspection: Symmetric Chest Wall Rise and Tenderness Respiratory Respiratory Exam: Normal Lung Sounds Bilat Cardiovascular Cardiovascular Exam: Regular Rate and Normal Rhythm Pulse: Normal Edema: Normal Abdominal Exam Abdominal Exam: Normal Bowel Sounds, Soft and Tenderness (Upper epigastric tenderness); negative Distention, Guarding, Rebound, Rigidity, Organomegaly or Ascites Extremities Extremities Exam: Normal Inspection Back Back Exam: Normal Inspection Neurologic Neurological Exam: Alert and Oriented X3 Psychiatric Psychiatric Exam: Normal Affect and Normal Mood Skin Skin Exam: Warm, Dry, Intact and Normal Color COURSE Treatment Treatment: Discussed results of workup with patient. Patient agreeable to admission Consultation Consultation Comments: Discussed case with Dr. Armstrong and he is agreeable to admission. ROR Labs Reviewed Laboratory Results Reviewed?: Yes 01/18/25 10:23 01/18/25 10:23 Laboratory: WBC 8.6 X10^3/uL (3.6-10.0) 01/18/25 10:23 RBC 4.90 X10^6/uL (4.7-6.0) 01/18/25 10:23 Hgb 14.6 g/dL (13.5-18.0) 01/18/25 10:23 Hct 41.9 % (42.0-54.0) L 01/18/25 10:23 MCV 85.4 fL (80.0-100.0) 01/18/25 10:23 MCH 29.7 pg (27.0-34.0) 01/18/25 10:23 MCHC 34.8 g/dL (33.0-35.0) 01/18/25 10:23 RDW 13.6 % (11.6-16.5) 01/18/25 10:23 Plt Count 254 X10^3/uL (150.0-450.0) 01/18/25 10:23 MPV 8.5 fL (7.4-11.0) 01/18/25 10:23 Neut % (Auto) 67.5 % (42.0-75.0) 01/18/25 10:23 Lymph % (Auto) 24.8 % (21.0-51.0) 01/18/25 10:23 [place] % (Auto) 5.6 % (0.0-13.0) 01/18/25 10:23 Eos % (Auto) 1.1 % (0.9-2.9) 01/18/25 10:23 Baso % (Auto) 1.0 % (0.2-1.0) 01/18/25 10:23 Neut # (Auto) 5.8 x10^3/uL (2.2-4.8) H 01/18/25 10:23 Lymph # (Auto) 2.1 X10^3/uL (1.3-2.9) 01/18/25 10:23 [place] # (Auto) 0.5 x10^3/uL (0.3-0.8) 01/18/25 10:23 Eos # (Auto) 0.1 x10^3/uL (0.0-0.2) 01/18/25 10:23 Baso # (Auto) 0.1 X10^3/uL (0.0-0.1) 01/18/25 10:23 Absolute Nucleated RBC 0.2 /100WBC 01/18/25 10:23 PT 13.2 SECONDS (11.8-14.3) 01/18/25 10:23 INR Target Range - 01/18/25 10:23 INR 0.99 (0.8-1.3) 01/18/25 10:23 APTT 21.5 SECONDS (22.9-36.5) L 01/18/25 10:23 PTT Comment - 01/18/25 10:23 D-Dimer < 0.27 ug/ml (0.0-0.57) 01/18/25 10:23 Sodium 137 mmol/L (136-145) 01/18/25 10:23 Corrected Sodium 145 mmol/L (136-145) 01/18/25 10:23 Potassium 4.0 mmol/L (3.5-5.1) 01/18/25 10:23 Chloride 102 mmol/L (98-107) 01/18/25 10:23 Carbon Dioxide 26.0 mmol/L (21-32) 01/18/25 10:23 BUN 14 mg/dL (7-18) 01/18/25 10:23 Creatinine 1.00 mg/dL (0.70-1.30) 01/18/25 10:23 Est GFR (MDRD) Af Amer > 60 (>60) 01/18/25 10:23 Est GFR (MDRD) Non-Af > 60 (>60) 01/18/25 10:23 Glucose 419 mg/dL (65-99) H 01/18/25 10:23 Calcium 8.8 mg/dL (8.5-10.1) 01/18/25 10:23 Corrected Calcium TNP 01/18/25 10:23 Magnesium 1.8 mg/dL (2.0-2.9) L 01/18/25 10:23 Total Bilirubin 0.70 mg/dL (0.2-1.0) 01/18/25 10:23 AST 10 Units/L (15-37) L 01/18/25 10:23 ALT 25 Units/L (12-78) 01/18/25 10:23 Alkaline Phosphatase 129 Units/L (46-116) H 01/18/25 10:23 Creatine Kinase 89 Units/L (39-308) 01/18/25 10:23 Troponin I High Sens < 4.0 ng/L (4.0-60.0) L 01/18/25 12:23 B-Natriuretic Peptide 14.0 pg/mL (0-79) 01/18/25 10:23 Total Protein 7.4 g/dL (6.4-8.2) 01/18/25 10:23 Albumin 3.7 g/dL (3.4-5.0) 01/18/25 10:23 Globulin 3.7 g/dL (2.5-4.5) 01/18/25 10:23 Albumin/Globulin Ratio 1.0 Ratio (1.1-2.1) L 01/18/25 10:23 Amylase 42 Units/L (25-115) 01/18/25 10:23 Lipase 54 Units/L (16-77) 01/18/25 10:23 Specimen Type Clean catch urine 01/18/25 11:48 Urine Color Straw (YELLOW) 01/18/25 11:48 Urine Appearance Clear (CLEAR) 01/18/25 11:48 Urine pH 6.0 (5.0 - 8.0) 01/18/25 11:48 Ur Specific [place] 1.015 (1.000-1.030) 01/18/25 11:48 Urine Protein Negative (NEGATIVE) 01/18/25 11:48 Urine Glucose (UA) 4+ (NEGATIVE) 01/18/25 11:48 Urine Ketones Negative (NEGATIVE) 01/18/25 11:48 Urine Blood Negative (NEGATIVE) 01/18/25 11:48 Urine Nitrite Negative (NEGATIVE) 01/18/25 11:48 Urine Bilirubin Negative (NEGATIVE) 01/18/25 11:48 Urine Urobilinogen Normal (NORMAL) 01/18/25 11:48 Ur Leukocyte Esterase Negative (NEGATIVE) 01/18/25 11:48 Other Results Comments: [id number] 1980 Sex: M Location: ER Order Number(s): [id number] Procedure(s):CT ABDOMEN/PELVIS W/O CON Ordering Physician: Andrea Kee Primary Care: ESTER VELASQUEZ Service Date: 01/18/25 Service Time: 1208 EXAM: ABDOMEN/PELVIS W/O CON HISTORY: ABD PAIN; COMPARISON: None. TECHNIQUE: Multiple axial images of the abdomen and pelvis were obtained from the lung bases to the pubic symphysis without the administration of IV contrast. Dose reduction techniques including Automated Exposure Control (AEC) and adjustment of mA and kV were utilized. FINDINGS: The posterior lung bases are clear. There are no pleural fluid collections. The heart size is normal. The gallbladder is surgically absent. The noncontrast attenuation of the liver parenchyma remains homogeneous. No acute abnormalities of the pancreas or adrenal glands. Craniocaudal length of the spleen is 14.2 cm. AP diameter of 12.2 cm. Findings compatible with mild splenomegaly. Splenic attenuation remains homogeneous No radiopaque calculi of the right or left kidney. No evidence of hydronephrosis. Bilateral ureters are decompressed to the level of the urinary bladder. There are multiple pelvic and retroperitoneal phleboliths. Normal caliber aorta and IVC. Small fat containing left periumbilical hernia measuring 2.4 cm without complication. No pathologically distended, aggressively thickened or acutely inflamed bowel segments, within limitations of a noncontrast assessment. Moderate stool burden of the colon. A few scattered colonic diverticula are observed. A normal appendix is confirmed. There is no mesenteric root edema or free fluid. The prostate gland is average size. The bladder is normal in morphology. No pelvic lymphadenopathy is identified. Postsurgical changes of PLIF at the L4-L5 level with no acute hardware complications. Spinal stimulator device is in place within the left flank. No aggressive bony lesions or acute osseous abnormalities are identified. IMPRESSION: No radiopaque genitourinary calculi or evidence of obstruction associated with the right or left kidney. No localizing source of acute inflammation within the abdomen or pelvis, within limitations of a noncontrast assessment Nonobstructive bowel gas pattern with moderate stool burden of the colon Small fat containing left periumbilical hernia without complication See above for details of additional postsurgical and notable chronic findings. THIS IS AN ELECTRONICALLY VERIFIED FINAL REPORT 01/18/2025 12:39 PM - Electronically signed by Gabriele Harp MD [id number] : 1980 Sex: M Location: ER Order Number(s): [id number] Procedure(s):CHEST, PA/LAT ADULT X-RAY Ordering Physician: Andrea Kee Primary Care: ESTER VELASQUEZ Service Date: 01/18/25 Service Time: 1026 EXAM: CHEST, PA/LAT ADULT HISTORY: CP, SOB; COMPARISON: No relevant prior studies were available for comparison at the time of interpretation. TECHNIQUE: CHEST, PA/LAT ADULT FINDINGS: Chest: Lines and tubes: Cardiac leads overlie the chest. Mediastinum: Cardiac and mediastinal shadow is within normal limits for size and contour. Pulmonary vessels: No pulmonary vascular congestion. Lung ahuja: No suspicious airspace opacity. Pleura: No effusion. No pneumothorax. Bones and soft tissues: No acute osseous or soft tissue abnormality. IMPRESSION: 1. No acute cardiopulmonary abnormality THIS IS AN ELECTRONICALLY VERIFIED FINAL REPORT 01/18/2025 10:45 AM - Electronically signed by Joseph Meier MD EKG Rate: 72 [place]: LAD Rhythm: NSR ST: Normal Opioid Opioid Risk Tool Age (Matti box if 16-45): No History of Preadolescent Sexual Abuse: No Total: 0 Total Score Risk Category: Low Risk Copyright: [facility] predicting aberrant behaviors Discharge Plan Diagnosis Discharge Problem: Chest pain in adult Discharge Plan Patient Disposition: 09 ADMITTED INPATIENT Condition: Stable Prescriptions: No Action hydrocodone-acetaminophen 10-325 mg tablet 1 tab PO QID PRN tramadol 50 mg tablet 50 mg PO BID PRN spironolactone 25 mg tablet 25 mg PO QDAY gemfibrozil 600 mg tablet 600 mg PO BID pantoprazole 40 mg tablet,delayed release (DR/EC) 40 mg PO QDAY losartan 25 mg tablet 25 mg PO BID gabapentin 300 mg capsule 300 mg PO TID escitalopram oxalate 10 mg tablet 10 mg PO QDAY Januvia 100 mg tablet 100 mg PO QDAY insulin asp prt-insulin aspart [Novolog Mix 70-30 U-100 Insuln] 100 unit/mL (70-30) Solution 1 sliding scale dose SUBCUT USEASDIRECTD insulin degludec [Tresiba U-100 Insulin] 100 unit/mL Solution 25 unit SUBCUT BID Vraylar 3 mg Capsule 3 mg PO QDAY Patient Comments: Pt states PCP gives him samples of this medication d/t cost of medication Health Concerns: Post Hospitalization: new medications and changes needed to prevent readmission or further decline. Pt educated and given instructions on all concerns. Plan of Treatment: Continue with present treatment and follow up plan. Pt is to keep follow up appointment as instructed and take medications as ordered. Orders to Discharge Patient Discharge Orders: Transfer (Routine); Ordered 01/18/25 Ordered By: Andrea Kee Follow ups/Referrals Follow ups/Referrals: ESTER VELASQUEZ [Primary Care Provider] - 3 days Instructions Stand Alone Forms: Find Help Web Site, Post Hospital Follow Up Care Print Language: FRENCH
[2025-01-18] MEDS ORDERED: TYLENOL 325 MG TAB PO PRN (15:25)
[2025-01-18] MEDS: CONSULT PHARMACY - POTASSIUM & MAGNESIUM XX SCH (15:28)
[2025-01-18] MEDS: ZOFRAN INJ 4 MG VIAL ONE (15:28)
[2025-01-18] MEDS: NITRO-BID OINT 2% UD (E.R. USE ONLY) ONE (15:28)
[2025-01-18] MEDS: NITROSTAT ONE (15:28)
--- NOTE | 2025-01-18 16:00 | EKG ---
Test Reason : chest pain Blood Pressure : */* mmHG Vent. Rate : 62 BPM Atrial Rate : 62 BPM P-R Int : 214 ms QRS Dur : 96 ms QT Int : 404 ms P-R-T Axes : 43 -39 29 degrees QTc Int : 410 ms Sinus rhythm with 1st degree AV block Left axis deviation Possible Anterior infarct (cited on or before 28-SEP-2024) Abnormal ECG When compared with ECG of 18-JAN-2025 10:33, (Unconfirmed) No significant change was found Confirmed by Ubaldo Blair MD ([id number]) on 01/19/2025 5:58:20 AM Referred By: Confirmed By: Ubaldo Blair MD
[2025-01-18] MEDS: NORCO 5/325 MG TAB PO PRN (16:35)
[2025-01-18] MEDS: NovoLIN R (or HumuLIN R) SUBCUT PRN (17:35)
[2025-01-18] MEDS: ZOFRAN INJ 4 MG VIAL IVP PRN (18:22)
[2025-01-18] MEDS: MORPHINE SULFATE INJ 2 MG INJ IVP PRN (18:25)
[2025-01-18] MEDS: SNACK - Diabetic Appropriate PO SCH (20:01)
[2025-01-18] MEDS: LOPID PO SCH (20:22)
[2025-01-18] MEDS: MAG-OX TAB PO SCH (20:22)
[2025-01-18] MEDS: COZAAR PO SCH (20:23)
[2025-01-18] MEDS: ULTRAM PO PRN (20:23)
--- NOTE | 2025-01-18 21:18 | EKG ---
Test Reason : chest pain Blood Pressure : */* mmHG Vent. Rate : 70 BPM Atrial Rate : 70 BPM P-R Int : 210 ms QRS Dur : 102 ms QT Int : 398 ms P-R-T Axes : 25 -33 7 degrees QTc Int : 429 ms Sinus rhythm with 1st degree AV block Left axis deviation Possible Anterior infarct (cited on or before 28-SEP-2024) Abnormal ECG When compared with ECG of 18-JAN-2025 15:50, (Unconfirmed) No significant change was found Confirmed by Ubaldo Blair MD ([id number]) on 01/19/2025 5:58:16 AM Referred By: Confirmed By: Ubaldo Blair MD
[2025-01-18] MEDS: NEURONTIN CAP 300 MG PO SCH (22:13)
[2025-01-19] MEDS: RESTORIL CAP 15 MG PO PRN (00:41)
--- NOTE | 2025-01-19 03:13 | EKG ---
Test Reason : chest pain Blood Pressure : */* mmHG Vent. Rate : 65 BPM Atrial Rate : 65 BPM P-R Int : 218 ms QRS Dur : 112 ms QT Int : 406 ms P-R-T Axes : 51 -32 15 degrees QTc Int : 422 ms Sinus rhythm with 1st degree AV block Left axis deviation Possible Anterior infarct (cited on or before 28-SEP-2024) Abnormal ECG When compared with ECG of 18-JAN-2025 21:15, (Unconfirmed) No significant change was found Confirmed by Ubaldo Blair MD ([id number]) on 01/19/2025 5:55:23 AM Referred By: Confirmed By: Ubaldo Blair MD
[2025-01-19 05:50] VITALS: RESP 18
[2025-01-19 06:00] LABS: MEAN PLATELET VOLUME 8.5 fL (7.4-11.0); RED CELL DISTRIBUTION WIDTH 13.9 % (11.6-16.5)
[2025-01-19 06:26] LABS: CHOL/HDL RATIO 5.9 (0.0-5.0); COR CA(FOR HYPOALB) 9.3 mg/dL (8.5-10.1); COR NA(FOR HYPERGLY) 144 mmol/L (136-145); CREATININE 1.05 mg/dL (0.70-1.30); eGFR NON BLACK RACES > 60 (>60)
[2025-01-19] MEDS ORDERED: CONSULT PHARMACY - POTASSIUM & MAGNESIUM XX SCH (07:00)
[2025-01-19 07:39] VITALS: BP 110/62; PULSE 75; TEMP 97.7; O2SAT 98
[2025-01-19] MEDS: ALDACTONE TAB 25 MG PO SCH (08:11)
[2025-01-19] MEDS: K-DUR TAB 20 MEQ PO SCH (08:12)
[2025-01-19] MEDS: LEXAPRO PO SCH (08:12)
[2025-01-19] MEDS: PROTONIX TAB 40 MG PO SCH (08:12)
[2025-01-19] MEDS: LEXAPRO ONE (08:22)
--- NOTE | 2025-01-23 16:26 | DR.SSS ---
SHORT STAY SUMMARY Admission Date Date of Admission: 01/18/25 Discharge Date Discharge Date: 01/19/25 Admission Diagnoses Admission Diagnoses: Chest pain Discharge Diagnoses Discharge Diagnoses: DM2 with hyperglycemia, atypical CP, HLD Chief Complaint Chief Complaint: chest pain History of Present Illness History of Present Illness: Presented to [facility] couple days ago with chest pain. Abdomen/pelvis CT benign. Advised it sounded like gastritis. Chest pain continued and he presented to our ER. Prior history of Due to "heart attack." He did not have stents with that. Given uncontrolled diabetes, hypertension, hyperlipidemia, and prior heart cath, decision was made to admit for chest pain rule out. Workup in the ER was overall benign. ROS: 12 point ROS negative except per above. Past Medical History Past Medical History: Coronary Artery Disease, Diabetes, Dyslipidemia, Hypertension and VT Past Surgical History Surgical History: Cholecystectomy, Ortho Surgery and Other Allergies Allergies Allergy/AdvReac Type Severity Reaction Status Date / Time No Known Allergies Allergy Verified 01/23/25 15:26 Medications Home Medications: No Known Allergies Allergy (Verified 01/18/25 11:47) CONTINUE taking the following medications cariprazine 3 mg capsule (Vraylar) 3 mg PO QDAY 01/18/25 [History] escitalopram oxalate 10 mg tablet 10 mg PO QDAY 01/18/25 [History] meloxicam 15 mg tablet 15 mg PO QDAY 01/18/25 [History] sucralfate 1 gram tablet 1 g PO TID PRN 01/18/25 [History] Family History Family Medical History: Diabetes Mellitus, Cancer, VT, Sudden Cardiac and Hypertension Social History Does patient currently use any type of tobacco product: Yes Have you used tobacco products in the last 12 months: Yes Type of Tobacco Use: Smokeless Alcohol Use: None Drug Use: None Physical Exam Vital Signs: Last Vital Signs Temp 97.5 F L 01/19/25 04:00 Pulse 62 01/19/25 04:00 Resp 18 01/19/25 06:49 BP 111/64 01/19/25 04:00 Pulse Ox 95 01/19/25 04:00 O2 Del Method Room Air 01/19/25 04:00 O2 Flow Rate 2 01/18/25 15:50 FiO2 28 01/18/25 15:50 Labs Labs: Laboratory Last Values WBC 5.6 X10^3/uL (3.6-10.0) 01/19/25 05:12 RBC 4.73 X10^6/uL (4.7-6.0) 01/19/25 05:12 Hgb 13.8 g/dL (13.5-18.0) 01/19/25 05:12 Hct 40.8 % (42.0-54.0) L 01/19/25 05:12 MCV 86.3 fL (80.0-100.0) 01/19/25 05:12 MCH 29.2 pg (27.0-34.0) 01/19/25 05:12 MCHC 33.8 g/dL (33.0-35.0) 01/19/25 05:12 RDW 13.9 % (11.6-16.5) 01/19/25 05:12 Plt Count 229 X10^3/uL (150.0-450.0) 01/19/25 05:12 MPV 8.5 fL (7.4-11.0) 01/19/25 05:12 Neut % (Auto) 51.0 % (42.0-75.0) 01/19/25 05:12 Lymph % (Auto) 38.5 % (21.0-51.0) 01/19/25 05:12 [place] % (Auto) 7.1 % (0.0-13.0) 01/19/25 05:12 Eos % (Auto) 2.5 % (0.9-2.9) 01/19/25 05:12 Baso % (Auto) 0.9 % (0.2-1.0) 01/19/25 05:12 Neut # (Auto) 2.8 x10^3/uL (2.2-4.8) 01/19/25 05:12 Lymph # (Auto) 2.1 X10^3/uL (1.3-2.9) 01/19/25 05:12 [place] # (Auto) 0.4 x10^3/uL (0.3-0.8) 01/19/25 05:12 Eos # (Auto) 0.1 x10^3/uL (0.0-0.2) 01/19/25 05:12 Baso # (Auto) 0.1 X10^3/uL (0.0-0.1) 01/19/25 05:12 Absolute Nucleated RBC 0.3 /100WBC 01/19/25 05:12 PT 13.2 SECONDS (11.8-14.3) 01/18/25 10:23 INR Target Range - 01/18/25 10:23 INR 0.99 (0.8-1.3) 01/18/25 10:23 APTT 21.5 SECONDS (22.9-36.5) L 01/18/25 10:23 PTT Comment - 01/18/25 10:23 D-Dimer < 0.27 ug/ml (0.0-0.57) 01/18/25 10:23 Sodium 141 mmol/L (136-145) 01/19/25 05:12 Corrected Sodium 144 mmol/L (136-145) 01/19/25 05:12 Potassium 3.7 mmol/L (3.5-5.1) 01/19/25 05:12 Chloride 103 mmol/L (98-107) 01/19/25 05:12 Carbon Dioxide 31.9 mmol/L (21-32) 01/19/25 05:12 BUN 13 mg/dL (7-18) 01/19/25 05:12 Creatinine 1.05 mg/dL (0.70-1.30) 01/19/25 05:12 Est GFR (MDRD) Af Amer > 60 (>60) 01/19/25 05:12 Est GFR (MDRD) Non-Af > 60 (>60) 01/19/25 05:12 Glucose 217 mg/dL (65-99) H 01/19/25 05:12 POC Glucose (mg/dL) 216 mg/dL (65-99) H 01/19/25 05:34 Calcium 8.7 mg/dL (8.5-10.1) 01/19/25 05:12 Corrected Calcium 9.3 mg/dL (8.5-10.1) 01/19/25 05:12 Magnesium 2.3 mg/dL (2.0-2.9) 01/19/25 05:12 Total Bilirubin 0.70 mg/dL (0.2-1.0) 01/19/25 05:12 AST 20 Units/L (15-37) 01/19/25 05:12 ALT 28 Units/L (12-78) 01/19/25 05:12 Alkaline Phosphatase 103 Units/L (46-116) 01/19/25 05:12 Creatine Kinase 77 Units/L (39-308) 01/18/25 15:39 Troponin I High Sens 4.0 ng/L (4.0-60.0) 01/19/25 05:12 B-Natriuretic Peptide 14.0 pg/mL (0-79) 01/18/25 10:23 Total Protein 6.6 g/dL (6.4-8.2) 01/19/25 05:12 Albumin 3.2 g/dL (3.4-5.0) L 01/19/25 05:12 Globulin 3.4 g/dL (2.5-4.5) 01/19/25 05:12 Albumin/Globulin Ratio 0.9 Ratio (1.1-2.1) L 01/19/25 05:12 Triglycerides 255 mg/dL (0-150) H 01/19/25 05:12 Cholesterol 189 mg/dL (0-200) 01/19/25 05:12 LDL Cholesterol, Calc 106 mg/dL (0-100) H 01/19/25 05:12 HDL Cholesterol 32 mg/dL (40-60) L 01/19/25 05:12 Cholesterol/HDL Ratio 5.9 (0.0-5.0) H 01/19/25 05:12 Amylase 42 Units/L (25-115) 01/18/25 10:23 Lipase 54 Units/L (16-77) 01/18/25 10:23 Specimen Type Clean catch urine 01/18/25 11:48 Urine Color Straw (YELLOW) 01/18/25 11:48 Urine Appearance Clear (CLEAR) 01/18/25 11:48 Urine pH 6.0 (5.0 - 8.0) 01/18/25 11:48 Ur Specific [place] 1.015 (1.000-1.030) 01/18/25 11:48 Urine Protein Negative (NEGATIVE) 01/18/25 11:48 Urine Glucose (UA) 4+ (NEGATIVE) 01/18/25 11:48 Urine Ketones Negative (NEGATIVE) 01/18/25 11:48 Urine Blood Negative (NEGATIVE) 01/18/25 11:48 Urine Nitrite Negative (NEGATIVE) 01/18/25 11:48 Urine Bilirubin Negative (NEGATIVE) 01/18/25 11:48 Urine Urobilinogen Normal (NORMAL) 01/18/25 11:48 Ur Leukocyte Esterase Negative (NEGATIVE) 01/18/25 11:48 Assessment/Plan (1) Chest pain: (2) Type 2 diabetes mellitus with hyperglycemia: (3) Essential (primary) hypertension: (4) Mixed hyperlipidemia: (5) Atherosclerotic heart disease of [place] coronary artery without angina pectoris: (6) Splenomegaly: Hospital Course Hospital Course: Patient did well overnight. Troponins benign and stable. Chest pain present but improved with nitro. He wants to go home and follow-up as an outpatient. Does agree to see cardiology as an outpatient, 2. Would like to go consider different medications for his diabetes. Willing to discharge on full dose aspirin, statin, and as needed nitro. Discharged in improved, stable condition with follow-up with myself and cardiology. PE: Well-developed, well-nourished male in no acute distress. Head NCAT, hearing intact conversation, EOMI. Neck full range of motion and supple. No JVD. Heart regular rate and rhythm with no murmurs. Lungs clear bilaterally with unlabored respirations. Mood and affect are appropriate. No edema of his extremities with full range of motion. Belly is soft and nontender with bowel sounds present. Discharge Medications Discharge Medications: Home Medication List cariprazine 3 mg capsule (Vraylar) 3 mg PO QDAY 01/18/25 [History] escitalopram oxalate 10 mg tablet 10 mg PO QDAY 01/18/25 [History] meloxicam 15 mg tablet 15 mg PO QDAY 01/18/25 [History] sucralfate 1 gram tablet 1 g PO TID PRN 01/18/25 [History] Prescriptions: Discharge Plan Discharge Plan Patient Disposition: 01 HOME, SELF-CARE Condition: Stable Health Concerns: Post Hospitalization: new medications and changes needed to prevent readmission or further decline. Pt educated and given instructions on all concerns. Care Plan Goals: Problem: Chest Pain Goals: Chest pain improving/resolved Instructions: Contact your physician or report to the closest Emergency Department if your chest pain returns or worsens. Take medications as prescribed. Follow up with your primary doctor as instructed. Plan of Treatment: Continue with present treatment and follow up plan. Pt is to keep follow up appointment as instructed and take medications as ordered. Assessment: No distress noted. Prescription drug monitoring program results: PDMP reviewed and no concerns identified Prescriptions: New rosuvastatin 10 mg tablet 10 mg PO QDAY 90 Days Qty: 90 0RF nitroglycerin 0.4 mg tablet, sublingual 0.4 mg sublingual Q5-15M PRNQty: 30 0RF Rx Instructions: do not exceed 3 doses per episode aspirin 325 mg tablet 325 mg PO QDAY 30 Days Qty: 30 0RF Continued hydrocodone-acetaminophen 10-325 mg tablet 1 tab PO QID PRN spironolactone 25 mg tablet 25 mg PO QDAY gemfibrozil 600 mg tablet 600 mg PO BID losartan 25 mg tablet 25 mg PO BID Januvia 100 mg tablet 100 mg PO QDAY Vraylar 3 mg Capsule 3 mg PO QDAY Patient Comments: Pt states PCP gives him samples of this medication d/t cost of medication escitalopram oxalate 10 mg tablet 10 mg PO QDAY Discontinued tramadol 50 mg tablet 50 mg PO BID PRN No Action (DME) True Metrix Glucose Test Strip Strip See Rx Instructions .ROUTE .MEDSUPPLY Qty: 10 Rx Instructions: As directed Trulicity 0.75 mg/0.5 mL pen injector 0.75 mg subcut QWEEK 28 Days Qty: 2 5RF Orders to Discharge Patient Discharge Orders: Discharge (Routine); Ordered 01/19/25 Ordered By: Yovany Armstrong Follow ups/Referrals Follow ups/Referrals: ABNER MULLEN MD [STAFF PHYSICIAN, Cardiology] - 02/07/25 11:00 am Referral Note: [place] office for follow up. Yovany Armstrong MD [STAFF PHYSICIAN, Family Practice] - 01/23/25 3:30 pm Instructions Instructions: Nonspecific Chest Pain, Adult, [id number]-[id number] Stand Alone Forms: Excuse From Work or School, Find Help Web Site, Post Hospital Follow Up Care Print Language: MACEDON[place]
== END 2025-01-19 09:20 | disposition home or self-care (01) ==
LOC: MED/SURG 10:13 → ER 10:13 → MED/SURG 15:33
PROVIDERS: ADMIT Family Medicine; ATTEND Family Medicine
DX: R06.02 Shortness of breath; R79.1 Abnormal coagulation profile; R10.84 Generalized abdominal pain; E11.65 Type 2 diabetes mellitus with hyperglycemia; E78.2 Mixed hyperlipidemia; I10 Essential (primary) hypertension; R07.89 Other chest pain; R16.1 Splenomegaly, not elsewhere classified; R74.8 Abnormal levels of other serum enzymes; I25.10 Atherosclerotic heart disease of native coronary artery without angina pectoris; E83.42 Hypomagnesemia; I25.2 Old myocardial infarction; Z79.4 Long term (current) use of insulin; R94.31 Abnormal electrocardiogram [ECG] [EKG]